=== PATIENT | female | born 2000 | race Caucasian/White ===

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

== ENCOUNTER 2023-10-14 15:46 | Emergency (ER) | payer BC ==
[2023-10-14 16:12] VITALS: TEMP 97.7
[2023-10-14] MEDS: LIDOCAINE 1%-EPI 1:100,000 20 ML VIAL SQ STA (16:39)
[2023-10-14] MEDS: LIDOCAINE VISCOUS 2% 15 ML CUP PO ONE (16:39)
[2023-10-14] MEDS: SODIUM CHLORIDE 0.9% 1,000 ML IV STA (16:40)
[2023-10-14] MEDS: BENZOCAINE SPRAY 1 CAN MUCOUS MEM STA (16:40)
--- NOTE | 2023-10-14 17:01 | ED ---
General Adult HPI - General Chief complaint: Skin/Abscess/Foreign Body Stated complaint: Abcess on tonsils Time Seen by Provider: 10/14/23 16:13 Source: patient, family Mode of arrival: ambulatory Limitations: no limitations - History of Present Illness Initial comments: Dictation was produced using Group[employer] dictation software. please excuse any grammatical, word or spelling errors. Chief Complaint: 23-year-old female presents emergency department with peritonsillar abscess History of Present Illness: Patient 23-year-old female she is transferred from [facility]. Patient has a peritonsillar abscess that measures approximately 2 x 2 cm. She has been suffering from trismus, odynophagia for the last 2 to 3 days. She was seen at [facility] where CT was performed showing peritonsillar abscess. ER doctor there did not feel comfortable performing the procedure. Patient requested to be transferred to our facility for further care. The ROS documented in this emergency department record has been reviewed and confirmed by me. Those systems with pertinent positive or negative responses have been documented in the HPI. All other systems are other negative and/or noncontributory. - Related Data Previous Rx's Medication Instructions Recorded Amoxic-Pot Clav 875-125Mg 1 tab PO BID 10 Days #20 tab 10/14/23 [Augmentin 875-125] methylPREDNISolone Dose Pack 4 mg PO DIRECTED #1 packet 10/14/23 [Medrol Dose Pack] Allergies Allergy/AdvReac Type Severity Reaction Status Date / Time No Known Allergies Allergy Verified 05/30/14 11:35 Review of Systems ROS Statement: Those systems with pertinent positive or pertinent negative responses have been documented in the HPI. ROS Other: All systems not noted in ROS Statement are negative. Past Medical History Past Medical History: No Reported History History of Any Multi-Drug Resistant Organisms: None Reported Past Surgical History: No Surgical Hx Reported Past Psychological History: No Psychological Hx Reported Smoking Status: Never smoker Past Alcohol Use History: Occasional Past Drug Use History: Marijuana General Exam - General Exam Comments Initial Comments: General: Well-appearing, nontoxic, no acute distress. Head: Normocephalic, atraumatic Eyes: PERRLA, EOMI ENT: Airway patent, mild voice hoarseness, trismus, right peritonsillar fullness Chest: Nonlabored breathing Skin: No visual rash, normal skin tone Neuro: Alert and oriented 3 Musculoskeletal: No gross abnormalities Limitations: no limitations Course Vital Signs 10/14/23 16:00 Temperature 97.7 F Pulse Rate 72 Respiratory 18 Rate Blood Pressure 114/71 O2 Sat by Pulse 98 Oximetry Procedures - Incision & Drainage Consent Obtained: verbal consent, written consent Site: other (peritonsillar) Anesthetic Used: lidocaine 1%, with epi Sterile Field Used?: No Ultrasound used: No Needle Aspiration Performed?: Yes (8cc) I&D Drainage Obtained: Pus Insertion of drain: No Culture Obtained?: No Patient Tolerated Procedure: well Medical Decision Making - Medical Decision Making Was pt. sent in by a medical professional or institution (, PA, PRINTER FLOOR COVERING ASSISTANT, urgent care, hospital, or senior living...) When possible be specific @ -Outside emergency room via transfer by private vehicle Did you speak to anyone other than the patient for history (EMS, parent, family, police, friend...)? What history was obtained from this source @ -No Did you review nursing and triage notes (agree or disagree)? Why? @ -I reviewed and agree with nursing and triage notes Were old charts reviewed (outside hosp., previous admission, EMS record, old EKG, old radiological studies, urgent care reports/EKG's, senior living records)? Report findings @ -Your documents from [facility] were reviewed showing patient received Decadron, Unasyn had a negative test. CT imaging reviewed showed large right-sided peritonsillar abscess Differential Diagnosis (chest pain, altered mental status, abdominal pain women, abdominal pain men, vaginal bleeding, musculoskeletal, weakness, fever, dyspnea, syncope, headache, dizziness, GI bleed, back pain, seizure, CVA, palpatations, mental health)? @ -Not applicable EKG interpreted by me (3pts min.). @ -None done X-rays interpreted by me (1pt min.). @ -None done CT interpreted by me (1pt min.). @ -None done U/S interpreted by me (1pt. min.). @ -None done What testing was considered but not performed or refused? (CT, X-rays, U/S, labs)? Why? @ -None What meds were considered but not given or refused? Why? @ -None Did you discuss the management of the patient with other professionals (professionals i.e. , PA, PRINTER FLOOR COVERING ASSISTANT, lab, RT, psych nurse, hospital social worker, charge master coordinator, teacher, environmental technical officer, manager case)? Give summary @ -Case discussed with Dr. Guillermo Cole request that patient's medications to be switched from amoxicillin to Augmentin Was smoking cessation discussed for >3mins.? @ -No Was critical care preformed (if so, how long)? @ -No Were there social determinants of health that impacted care today? How? (Homelessness, low income, unemployed, alcoholism, drug addiction, transportation, low edu. Level, literacy, decrease access to med. care, halfway, rehab)? @ -No Was there de-escalation of care discussed even if they declined (Discuss DNR or withdrawal of care, Hospice)? DNR status @ -No What co-morbidities impacted this encounter? (DM, HTN, Smoking, COPD, CAD, Cancer, CVA, ARF, Chemo, Hep., AIDS, mental health diagnosis, sleep apnea, morbid obesity)? @ -None Was patient admitted / discharged? Hospital course, mention meds given and route, prescriptions, significant lab abnormalities, going to OR and other pertinent info. @ -23-year-old female transferred to our facility for Peritonsillar abscess. Vital signs stable. DETENTION ATTENDANT drainage was performed successfully with large amount of purulent fluid aspirated from the peritonsillar space. Patient given IV fluids. Observed emergency department. Case discussed with ENT specialist Dr. Guillermo Church who is willing to follow-up with patient on Tuesday. Request that patient's antibiotics be changed to Augmentin. The emergency department for approximate 2 hours. Patient reevaluated 5:40 PM with significantly proved condition. Patient did be discharged. Prescription sent for Medrol Dosepak and Augmentin. Patient given referral for Dr. Guillermo Church Undiagnosed new problem with uncertain prognosis? @ -No Drug Therapy requiring intensive monitoring for toxicity (Heparin, Nitro, Insulin, Cardizem)? @ -No Were any procedures done? @ -No Diagnosis/symptom? Acute, or Chronic, or Acute on Chronic? Uncomplicated (without systemic symptoms) or Complicated (systemic symptoms)? @ -Peritonsillar abscess Side effects of treatment? @ -No Exacerbation, Progression, or Severe Exacerbation? @ -No Poses a threat to life or bodily function? How? (Chest pain, [place], [place], pneumonia, PE, COPD, DKA, ARF, appy, cholecystitis, CVA, Diverticulitis, Homicidal, Suicidal, threat to staff... and all critical care pts) @ -yes Disposition Clinical Impression: Peritonsillar abscess Disposition: HOME SELF-CARE Condition: Fair Instructions (If sedation given, give patient instructions): Peritonsillar Abscess (ED) Prescriptions: Amoxic-Pot Clav 875-125Mg [Augmentin 875-125] 1 tab PO BID 10 Days #20 tab methylPREDNISolone Dose Pack [Medrol Dose Pack] 4 mg PO DIRECTED #1 packet Is patient prescribed a controlled substance at d/c from ED?: No Referrals: Jamal Morales DO [Doctor of Osteopathic Medicine] - 1-2 days Time of Disposition: 17:43
[2023-10-14 18:14] VITALS: BP 118/72; PULSE 77; RESP 16
--- NOTE | 2023-10-14 19:46 | ED ---
Disposition Clinical Impression: Peritonsillar abscess Disposition: HOME SELF-CARE Condition: Fair Instructions (If sedation given, give patient instructions): Peritonsillar Abscess (ED) Prescriptions: Amoxic-Pot Clav 875-125Mg [Augmentin 875-125] 1 tab PO BID 10 Days #20 tab Fluconazole [Diflucan] 150 mg PO ONCE PRN #1 tab PRN Reason: yeast symptoms methylPREDNISolone Dose Pack [Medrol Dose Pack] 4 mg PO DIRECTED #1 packet Is patient prescribed a controlled substance at d/c from ED?: No Referrals: Jamal Morales DO [Doctor of Osteopathic Medicine] - 1-2 days
== END 2023-10-14 17:56 | disposition home or self-care (01) ==
LOC: EC 15:46
DX: J36 Peritonsillar abscess (principal); F12.90 Cannabis use, unspecified, uncomplicated
CPT/HCPCS: 42700; 96360; 99283

== ENCOUNTER 2024-05-05 20:35 | Emergency (ER) | payer BC ==
--- NOTE | 2024-05-05 21:09 | ED ---
ENT HPI - General Chief complaint: ENT Stated complaint: Swollen tonsil Time Seen by Provider: 05/05/24 20:49 Source: patient, RN notes reviewed Mode of arrival: ambulatory Limitations: no limitations - History of Present Illness Initial comments: This is a 23-year-old female with no significant past medical history presents emergency department accompanied by her father for chief complaint of right tonsillar pain and swelling. Patient states that yesterday she began to feel sick experience of Dems of fevers, chills, sore throat and difficulty swall owing. Patient states over the past 24 hours she has had worsening swelling of her right tonsil. Patient states that she has experienced 2 peritonsillar abscesses over the past year and is followed with an ENT specialist. Currently she denies shortness of breath, difficulty swallowing, difficulty breathing. Denies recent antibiotic use. - Related Data Previous Rx's Medication Instructions Recorded Amoxic-Pot Clav 875-125Mg 1 tab PO BID 10 Days #20 tab 10/14/23 [Augmentin 875-125] Fluconazole [Diflucan] 150 mg PO ONCE PRN #1 tab 10/14/23 methylPREDNISolone Dose Pack 4 mg PO DIRECTED #1 packet 10/14/23 [Medrol Dose Pack] Amoxic-Pot Clav 875-125Mg 1 tab PO Q12HR #20 tab 05/06/24 [Augmentin 875-125] predniSONE 50 mg PO DAILY #5 tab 05/06/24 Allergies Allergy/AdvReac Type Severity Reaction Status Date / Time No Known Allergies Allergy Verified 05/05/24 20:42 Review of Systems ROS Statement: Those systems with pertinent positive or pertinent negative responses have been documented in the HPI. ROS Other: All systems not noted in ROS Statement are negative. Past Medical History Past Medical History: No Reported History History of Any Multi-Drug Resistant Organisms: None Reported Past Surgical History: No Surgical Hx Reported Past Psychological History: No Psychological Hx Reported Smoking Status: Never smoker Past Alcohol Use History: Occasional Past Drug Use History: Marijuana General Exam Limitations: no limitations General appearance: alert, in no apparent distress Eye exam: Present: normal appearance, PERRL, EOMI. Absent: scleral icterus, conjunctival injection, periorbital swelling Expanded Throat exam: tonsillar erythema, tonsillomegaly, tonsillar exudate (right) Neck exam: Present: normal inspection, tenderness, lymphadenopathy (tonsillar), other Respiratory exam: Present: normal lung sounds bilaterally. Absent: respiratory distress, wheezes, rales, rhonchi, stridor Cardiovascular Exam: Present: regular rate, normal rhythm, normal heart sounds. Absent: systolic murmur, diastolic murmur, rubs, gallop, clicks GI/Abdominal exam: Present: soft, normal bowel sounds. Absent: distended, tenderness, guarding, rebound, rigid Extremities exam: Present: normal inspection, full ROM, normal capillary refill. Absent: tenderness, pedal edema, joint swelling, calf tenderness Skin exam: Present: warm, dry, intact, normal color. Absent: rash Course Vital Signs 05/05/24 05/06/24 20:39 00:12 Temperature 98.3 F 97.9 F Pulse Rate 67 71 Respiratory 17 18 Rate Blood Pressure 121/80 123/84 O2 Sat by Pulse 98 97 Oximetry Medical Decision Making - Medical Decision Making Was pt. sent in by a medical professional or institution (, PA, MANUFACTURING PLANT MANAGER, urgent care, hospital, or skilled nursing...) When possible be specific @ -No Did you speak to anyone other than the patient for history (EMS, parent, family, police, friend...)? What history was obtained from this source @ -Spoke to patient's father at bedside states the patient has been treated for a peritonsillar abscess 1 time in the past and additionally she took antibiotics earlier in the spring for repeat infection as well. Did you review nursing and triage notes (agree or disagree)? Why? @ -I reviewed and agree with nursing and triage notes Were old charts reviewed (outside hosp., previous admission, EMS record, old EKG, old radiological studies, urgent care reports/EKG's, skilled nursing records)? Report findings @ -No old charts were reviewed Differential Diagnosis (chest pain, altered mental status, abdominal pain women, abdominal pain men, vaginal bleeding, weakness, fever, dyspnea, syncope, headache, dizziness, GI bleed, back pain, seizure, CVA, palpatations, mental health, musculoskeletal)? @ -Peritonsillar abscess, viral infection, bacterial infection, tonsillar abscess, tonsillar mass, this list is not all inclusive EKG interpreted by me (3pts min.). @ -None X-rays interpreted by me (1pt min.). @ -None done CT interpreted by me (1pt min.). @ -CT of the neck reveals enlarged tonsils with probable tonsillitis with no fluid collection. U/S interpreted by me (1pt. min.). @ -None done What testing was considered but not performed or refused? (CT, X-rays, U/S, labs)? Why? @ -None What meds were considered but not given or refused? Why? @ -None Did you discuss the management of the patient with other professionals (isabelle moreno i.e. , PA, MANUFACTURING PLANT MANAGER, lab, RT, psych nurse, vp digital marketing social media and crm, associate professor of sociology, teacher, correction officer city or county jail, shelter case manager)? Give summary @ -No Was smoking cessation discussed for >3mins.? @ -No Was critical care preformed (if so, how long)? @ -No Were there social determinants of health that impacted care today? How? (Homelessness, low income, unemployed, alcoholism, drug addiction, transportation, low edu. Level, literacy, decrease access to med. care, skilled nursing, rehab)? @ -No Was there de-escalation of care discussed even if they declined (Discuss DNR or withdrawal of care, Hospice)? DNR status @ -No What co-morbidities impacted this encounter? (DM, HTN, Smoking, COPD, CAD, Cancer, CVA, ARF, Chemo, Hep., AIDS, mental health diagnosis, sleep apnea, morbid obesity)? @ -None Was patient admitted / discharged? Hospital course, mention meds given and route, prescriptions, significant lab abnormalities, going to OR and other pertinent info. @ -discharged. 23-year-old female with tonsillar pain and sore throat. Patient's vitals are stable and she has no signs of respiratory distress on examination. Physical examination reveals right tonsillar erythema and tonsillomegaly with peritonsillar abscess and uvular deviation to the right. CBC reveals mildly elevated white blood cell count of 11.2, CRP elevated at 5.4, urinalysis remarkable for 4+ ketones and hCG is negative. Patient CT reveals enlarged tonsils with probable tonsillitis with no evidence of fluid collection or abscess. Patient will be provided with dose of steroid and Augmentin in the emergency department we sent full course of Augmentin and short burst of steroids for alleviation of sore throat and infection. All questions answered at bedside and strict return parameters caren the patient she is verbalized understanding. Case discussed with Dr. Orlando Undiagnosed new problem with uncertain prognosis? @ -No Drug Therapy requiring intensive monitoring for toxicity (Heparin, Nitro, Insulin, Cardizem)? @ -No Were any procedures done? @ -No Diagnosis/symptom? @ -tonsillitis, sore throat Acute, or Chronic, or Acute on Chronic? @ -Acute Uncomplicated (without systemic symptoms) or Complicated (systemic symptoms)? @ -uncomplicated Side effects of treatment? @ -No Exacerbation, Progression, or Severe Exacerbation? @ -No Poses a threat to life or bodily function? How? (Chest pain, [place], [place], pneumonia, PE, COPD, DKA, ARF, appy, cholecystitis, CVA, Diverticulitis, Homicidal, Suicidal, threat to staff... and all critical care pts) @ -No - Lab Data Result diagrams: 05/05/24 21:32 05/05/24 21:32 Lab Results 05/05/24 05/05/24 05/05/24 Range/Units 21:32 21:32 21:32 WBC 11.2 H (3.8-10.6) k/uL RBC 4.50 (3.80-5.40) m/uL Hgb 13.3 (11.4-16.0) gm/dL Hct 40.7 (34.0-46.0) % MCV 90.4 (80.0-100.0) fL MCH 29.6 (25.0-35.0) pg MCHC 32.7 (31.0-37.0) g/dL RDW 12.7 (11.5-15.5) % Plt Count 195 (150-450) k/uL MPV 7.4 Neutrophils % 85 % Lymphocytes % 10 % Monocytes % 4 % Eosinophils % 0 % Basophils % 0 % Neutrophils # 9.5 H (1.3-7.7) k/uL Lymphocytes # 1.1 (1.0-4.8) k/uL Monocytes # 0.5 (0-1.0) k/uL Eosinophils # 0.0 (0-0.7) k/uL Basophils # 0.0 (0-0.2) k/uL Sodium (137-145) mmol/L Potassium (3.5-5.1) mmol/L Chloride (98-107) mmol/L Carbon Dioxide (22-30) mmol/L Anion Gap mmol/L BUN (7-17) mg/dL Creatinine (0.52-1.04) mg/dL Est GFR (CKD-EPI)AfAm (>60 ml/min/1.73 sqM) Est GFR (CKD-EPI)NonAf (>60 ml/min/1.73 sqM) Glucose (74-99) mg/dL Plasma Lactic Acid Ranjit (0.7-2.0) mmol/L Calcium (8.4-10.2) mg/dL Total Bilirubin (0.2-1.3) mg/dL AST (14-36) U/L ALT (4-34) U/L Alkaline Phosphatase (38-126) U/L C-Reactive Protein (<1.0) mg/dL Total Protein (6.3-8.2) g/dL Albumin (3.5-5.0) g/dL Urine Color Light Yellow Urine Appearance Cloudy H (Clear) Urine pH 5.5 (5.0-8.0) Ur Specific [place] 1.022 (1.001-1.035) Urine Protein Trace H (Negative) Urine Glucose (UA) Negative (Negative) Urine Ketones 4+ H (Negative) Urine Blood Negative (Negative) Urine Nitrite Negative (Negative) Urine Bilirubin Negative (Negative) Urine Urobilinogen <2.0 (<2.0) mg/dL Ur Leukocyte Esterase Negative (Negative) Urine RBC 1 (0-5) /hpf Urine WBC 1 (0-5) /hpf Ur Squamous Epith Cells 8 H (0-4) /hpf Urine Bacteria Occasional H (None) /hpf Urine Mucus Occasional H (None) /hpf Urine HCG, Qual Not Detected (Not Detectd) 05/05/24 05/05/24 Range/Units 21:32 21:32 WBC (3.8-10.6) k/uL RBC (3.80-5.40) m/uL Hgb (11.4-16.0) gm/dL Hct (34.0-46.0) % MCV (80.0-100.0) fL MCH (25.0-35.0) pg MCHC (31.0-37.0) g/dL RDW (11.5-15.5) % Plt Count (150-450) k/uL MPV Neutrophils % % Lymphocytes % % Monocytes % % Eosinophils % % Basophils % % Neutrophils # (1.3-7.7) k/uL Lymphocytes # (1.0-4.8) k/uL Monocytes # (0-1.0) k/uL Eosinophils # (0-0.7) k/uL Basophils # (0-0.2) k/uL Sodium 137 (137-145) mmol/L Potassium 4.3 (3.5-5.1) mmol/L Chloride 105 (98-107) mmol/L Carbon Dioxide 23 (22-30) mmol/L Anion Gap 9 mmol/L BUN 7 (7-17) mg/dL Creatinine 0.57 (0.52-1.04) mg/dL Est GFR (CKD-EPI)AfAm >90 (>60 ml/min/1.73 sqM) Est GFR (CKD-EPI)NonAf >90 (>60 ml/min/1.73 sqM) Glucose 86 (74-99) mg/dL Plasma Lactic Acid Ranjit 0.9 (0.7-2.0) mmol/L Calcium 9.9 (8.4-10.2) mg/dL Total Bilirubin 1.2 (0.2-1.3) mg/dL AST 24 (14-36) U/L ALT 13 (4-34) U/L Alkaline Phosphatase 67 (38-126) U/L C-Reactive Protein 5.4 H (<1.0) mg/dL Total Protein 8.9 H (6.3-8.2) g/dL Albumin 5.3 H (3.5-5.0) g/dL Urine Color Urine Appearance (Clear) Urine pH (5.0-8.0) Ur Specific [place] (1.001-1.035) Urine Protein (Negative) Urine Glucose (UA) (Negative) Urine Ketones (Negative) Urine Blood (Negative) Urine Nitrite (Negative) Urine Bilirubin (Negative) Urine Urobilinogen (<2.0) mg/dL Ur Leukocyte Esterase (Negative) Urine RBC (0-5) /hpf Urine WBC (0-5) /hpf Ur Squamous Epith Cells (0-4) /hpf Urine Bacteria (None) /hpf Urine Mucus (None) /hpf Urine HCG, Qual (Not Detectd) Disposition Clinical Impression: Tonsillitis, Sore throat Disposition: HOME SELF-CARE Condition: Good Instructions (If sedation given, give patient instructions): Tonsillitis (ED) Additional Instructions: Return to the emergency department any new or worsening symptoms. Complete full course of antibiotics and steroids as prescribed. Prescriptions: Amoxic-Pot Clav 875-125Mg [Augmentin 875-125] 1 tab PO Q12HR #20 tab predniSONE 50 mg PO DAILY #5 tab Is patient prescribed a controlled substance at d/c from ED?: No Referrals: Nedra Quan MD [Primary Care Provider] - 1-2 days Time of Disposition: 01:44
[2024-05-05 21:55] LABS: ALT 13 U/L (4-34); AST 24 U/L (14-36); African American GFR (CKD) >90 (>60 ml/min/1.73 sqM); Albumin 5.3 g/dL (3.5-5.0); Alkaline Phosphatase 67 U/L (38-126); Anion Gap 9 mmol/L; Blood Urea Nitrogen 7 mg/dL (7-17); C Reactive Protein 5.4 mg/dL (<1.0); Calcium 9.9 mg/dL (8.4-10.2); Carbon Dioxide 23 mmol/L (22-30); Chloride 105 mmol/L (98-107); Glucose 86 mg/dL (74-99); Non-African American GFR(CKD) >90 (>60 ml/min/1.73 sqM); Potassium 4.3 mmol/L (3.5-5.1); Sodium 137 mmol/L (137-145); Total Bilirubin 1.2 mg/dL (0.2-1.3); Total Protein 8.9 g/dL (6.3-8.2)
[2024-05-05 21:57] LABS: Basophils % (A) 0 %; Eosinophils % (A) 0 %; HCT 40.7 % (34.0-46.0); HGB 13.3 gm/dL (11.4-16.0); Lymphocytes # (A) 1.1 k/uL (1.0-4.8); Lymphocytes % (A) 10 %; MCH 29.6 pg (25.0-35.0); MCHC 32.7 g/dL (31.0-37.0); MCV 90.4 fL (80.0-100.0); Mean Platelet Volume 7.4; Monocytes # (A) 0.5 k/uL (0-1.0); Monocytes % (A) 4 %; Neutrophils # (A) 9.5 k/uL (1.3-7.7); Neutrophils % (A) 85 %; Platelet Count 195 k/uL (150-450); RDW 12.7 % (11.5-15.5); WBC 11.2 k/uL (3.8-10.6)
[2024-05-05 22:11] LABS: Appearance,Urine Cloudy (Clear); Bacteria,Urine Occasional /hpf; Bilirubin,Urine Negative (Negative); Blood,Urine Negative (Negative); Color,Urine Light Yellow; Glucose,Urine (UA) Negative (Negative); Ketones,Urine 4+ (Negative); Leukocyte Esterase,Urine Negative (Negative); Mucus,Urine Occasional /hpf; Nitrite,Urine Negative (Negative); PH, Urine 5.5 (5.0-8.0); Protein,Urine Trace (Negative); RBC,Urine 1 /hpf (0-5); Specific Gravity,Urine 1.022 (1.001-1.035); Squamous Epithelial Cell,Urine 8 /hpf (0-4); Urobilinogen,Urine <2.0 mg/dL (<2.0); WBC,Urine 1 /hpf (0-5)
[2024-05-06 00:13] VITALS: BP 123/84; PULSE 71; RESP 18; TEMP 97.9
[2024-05-06] MEDS: SODIUM CHLORIDE 0.9% 1,000 ML IV STA (01:04)
--- NOTE | 2024-05-06 01:32 | CT ---
EXAM: CT Neck With Intravenous Contrast CLINICAL HISTORY: ITS.REASON CT Reason: right tonsillar swelling, uvula deviation TECHNIQUE: Axial computed tomography images of the neck with intravenous contrast. CTDI is 4.9 mGy and DLP is 166 mGy-cm. This CT exam was performed using one or more of the following dose reduction techniques: automated exposure control, adjustment of the mA and/or kV according to patient size, and/or use of iterative reconstruction technique. COMPARISON: No relevant prior studies available. FINDINGS: Tonsils: tonsillar enlargement. Larynx: Epiglottis is unremarkable. Airway: Aerodigestive tract is patent. Bones: No acute fracture. Upper lungs: Clear. IMPRESSION: Enlarged tonsils, probably tonsillitis. No fluid collection
[2024-05-06] MEDS: AMOXIC-POT CLAV 875-125MG 1 EACH TAB PO STA (01:55)
[2024-05-06] MEDS: methylPREDNISolone SOD SUCCI 125 MG/2 ML VIAL IV STA (01:55)
== END 2024-05-06 02:02 | disposition home or self-care (01) ==
LOC: EC 20:35
DX: J03.90 Acute tonsillitis, unspecified (principal)
CPT/HCPCS: 36415; 70491; 80053; 81001; 81025; 83605; 85025; 86140; 96361; 96374; 99283